=== PATIENT | female | born 1970 | race Caucasian/White ===

== ENCOUNTER → 2016-09-12 | Outpatient (CLI) | payer OTHER | LOC: WI 08:17 | PROVIDERS: ATTEND Obstetrics & Gynecology Gynecology | DX: Z12.31 Encounter for screening mammogram for malignant neoplasm of breast (principal) | CPT/HCPCS: 77067; G0202 ==

== ENCOUNTER 2017-08-21 11:08 | Emergency (ER) | payer OTHER ==
--- NOTE | 2017-08-21 11:25 | ER Document Report ---
ED Medical Screen (RME) - General Chief Complaint: Weakness Stated Complaint: WEAKNESS Time Seen by Provider: 08/21/17 11:20 Mode of Arrival: Ambulatory Information source: Patient Notes: 47 yo smoker, non htn, non dm, was at work this morning at 10:30 got bad taste in her mouth and smells of suedge, then go anterior retrosternal chest pain, lightheaded like she was going to pass, weak in right foot and right hand, vision turning sideways. Got up with her spouse and said she needed to the bathroom. Still has menses 12-27. Weakness is subsiding at this time. TRAVEL OUTSIDE OF THE [place] IN LAST 30 DAYS: No - Related Data Allergies/Adverse Reactions: No Known Allergies Allergy (Verified 08/03/13 03:17) Past Medical History - Past Medical History Cardiac Medical History: Denies: Hx Coronary Artery Disease, Hx Heart Attack, Hx Hypertension Pulmonary Medical History: Denies: Hx Asthma, Hx Bronchitis, Hx COPD, Hx Pneumonia Neurological Medical History: Denies: Hx Cerebrovascular Accident, Hx Seizures Musculoskeltal Medical History: Denies Hx Arthritis Past Surgical History: Reports: Hx Breast Surgery - augmentation - Immunizations Hx Diphtheria, Pertussis, Tetanus Vaccination: Yes Physical Exam - Vital signs Vitals: Temp Pulse Resp BP Pulse Ox 97.8 F 97 18 185/101 H 97 08/21/17 11:17 08/21/17 11:17 08/21/17 11:17 08/21/17 11:17 08/21/17 11:17 Course - Vital Signs Vital signs: Temp Pulse Resp BP Pulse Ox 97.8 F 97 18 185/101 H 97 08/21/17 11:17 08/21/17 11:17 08/21/17 11:17 08/21/17 11:17 08/21/17 11:17
--- NOTE | 2017-08-21 11:48 | RADIOLOGY REPORT (SQ) ---
EXAM DESCRIPTION: CT HEAD WITHOUT COMPLETED DATE/TIME: 08/21/2017 11:33 am REASON FOR STUDY: htn, right side weakness COMPARISON: None. TECHNIQUE: Axial images acquired through the brain without intravenous contrast. Images reviewed wi th bone, brain and subdural windows. Images stored on PACS. All CT scanners at this facility use dose modulation, iterative reconstruction, and/or weight based d osing when appropriate to reduce radiation dose to as low as reasonably achievable (ALARA). [facility]: Dose Right [facility]: CareDose [facility]: Dose Right [facility]: Teradose 4D [facility]: Smart Technologies RADIATION DOSE: CT Rad equipment meets quality standard of care and radiation dose reduction techniq ues were employed. CTDIvol: 64.6 mGy. DLP: 1163 mGy-cm. mGy. LIMITATIONS: None. FINDINGS: VENTRICLES: Normal size and contour. CEREBRUM: No masses. No hemorrhage. No midline shift. No evidence for acute infarction. Normal gra y/white matter differentiation. No areas of low density in the white matter. CEREBELLUM: No masses. No hemorrhage. No alteration of density. No evidence for acute infarction. EXTRAAXIAL SPACES: No fluid collections. No masses. ORBITS AND GLOBE: No intra- or extraconal masses. Normal contour of globe without masses. CALVARIUM: No fracture. PARANASAL SINUSES: No fluid or mucosal thickening. SOFT TISSUES: No mass or hematoma. OTHER: No other significant finding. IMPRESSION: NORMAL BRAIN CT WITHOUT CONTRAST. EVIDENCE OF ACUTE STROKE: NO. COMMENT: Pertinent positive or negative findings of the imaging study reported as a CRITICAL EXAM nimo RODRIGUEZ NP at11:36 on 08/21/2017. Category of Critical Exam: Stroke alert Quality ID # [id number]: Final reports with documentation of one or more dose reduction techniques (e.g., Au tomated exposure control, adjustment of the mA and/or kV according to patient size, use of iterative reconstruction technique) TECHNICAL DOCUMENTATION: JOB ID: [id number] [employer]- All Rights Reserved
--- NOTE | 2017-08-21 11:51 | RADIOLOGY REPORT (SQ) ---
EXAM DESCRIPTION: CHEST SINGLE VIEW COMPLETED DATE/TIME: 08/21/2017 11:36 am REASON FOR STUDY: htn, right side weakness COMPARISON: November 2009 EXAM PARAMETERS: NUMBER OF VIEWS: One view. TECHNIQUE: Single frontal radiographic view of the chest acquired. RADIATION DOSE: NA LIMITATIONS: None. FINDINGS: LUNGS AND PLEURA: No opacities, masses or pneumothorax. No pleural effusion. MEDIASTINUM AND HILAR STRUCTURES: No masses. Contour normal. HEART AND VASCULAR STRUCTURES: Heart normal in size. Normal vasculature. BONES: No acute findings. HARDWARE: None in the chest. OTHER: No other significant finding. IMPRESSION: NO ACUTE RADIOGRAPHIC FINDING IN THE CHEST. TECHNICAL DOCUMENTATION: JOB ID: [id number] [employer]- All Rights Reserved
[2017-08-21 12:13] LABS: INTERNATIONAL RATION (INR) 0.86; PROTHROMBIN TIME 12.4 SEC (11.4-15.4)
[2017-08-21 12:16] LABS: ABSOLUTE BASOPHILS # (AUTO) 0.1 10^3/uL (0.0-0.2); ABSOLUTE EOSINOPHILS # (AUTO) 0.2 10^3/uL (0.0-0.6); ABSOLUTE LYMPHOCYTES (AUTO) 2.2 10^3/uL (0.5-4.7); ABSOLUTE MONOCYTES (AUTO) 0.5 10^3/uL (0.1-1.4); ABSOLUTE NEUT (AUTO) 5.3 10^3/uL (1.7-8.2); BASOPHILS % (AUTO) 0.8 % (0-2); EOSINOPHILS % (AUTO) 2.3 % (0-6); HEMATOCRIT 38.3 % (36.0-47.0); HEMOGLOBIN 13.2 g/dL (12.0-15.5); LYMPHOCYTES % (AUTO) 27.1 % (13-45); MEAN CORPUSCULAR HGB CONC 34.5 g/dL (32.0-36.0); MEAN CORPUSCULAR VOLUME 93 fl (80-97); MONOCYTES % (AUTO) 6.2 % (3-13); PLATELET COUNT 252 10^3/uL (150-450); RED BLOOD COUNT 4.14 10^6/uL (3.72-5.28); RED CELL DISTRIBUTION WIDTH 12.5 % (11.5-14.0); SEGMENTED NEUTROPHILS % (AUTO) 63.6 % (42-78); TOTAL CELLS COUNTED % (AUTO) 100 %; WHITE BLOOD COUNT 8.3 10^3/uL (4.0-10.5)
[2017-08-21 12:33] LABS: ALANINE AMINOTRANSFERASE 51 U/L (9-52); ALBUMIN 5.1 g/dL (3.5-5.0); ALKALINE PHOSPHATASE 74 U/L (38-126); ANION GAP 13 (5-19); ASPARTATE AMINO TRANSFERASE 36 U/L (14-36); BILIRUBIN,DIRECT 0.3 mg/dL (0.0-0.4); BILIRUBIN,TOTAL 0.5 mg/dL (0.2-1.3); BLOOD UREA NITROGEN 12 mg/dL (7-20); CALCIUM 10.1 mg/dL (8.4-10.2); CARBON DIOXIDE 25 mmol/L (22-30); CHLORIDE 104 mmol/L (98-107); CREATINE KINASE 59 U/L (30-135); GLUCOSE 106 mg/dL (75-110); POTASSIUM 4.2 mmol/L (3.6-5.0); SODIUM 142.4 mmol/L (137-145); TOTAL PROTEIN 7.9 g/dL (6.3-8.2)
[2017-08-21 12:47] LABS: TROPONIN I < 0.012 ng/mL
--- NOTE | 2017-08-21 14:48 | ER Document Report ---
ED General - General Mode of Arrival: Ambulatory Information source: Patient TRAVEL OUTSIDE OF THE [place] IN LAST 30 DAYS: No <MOIRA GRACE - Last Filed: 08/21/17 15:10> <KALEB AVILA - Last Filed: 08/22/17 11:00> - General Chief Complaint: Weakness Stated Complaint: WEAKNESS Time Seen by Provider: 08/21/17 11:20 Notes: Patient is a 47 year old female with a history of a pituitary tumor presents to the emergency department complaining of multiple symptoms including right sided weakness, lightheadedness, chest pain and "weird smells and tastes" onset around 1030. Patient states she was at work when she stood up and became light headed and smelled something "foul", stating it smelt like someone "crop dusted " her. She also states she began to taste something foul. Patient states she felt confused and was moving slow. Patient denies any slurred speech. (MOIRA GRACE) - Related Data Allergies/Adverse Reactions: No Known Allergies Allergy (Verified 08/03/13 03:17) Past Medical History - General Information source: Patient - Social History Smoking Status: Current Every Day Smoker Chew tobacco use (# tins/day): Yes Frequency of alcohol use: Occasional Drug Abuse: None Family History: Reviewed & Not Pertinent Patient has suicidal ideation: No Patient has homicidal ideation: No Past Surgical History: Reports: Hx Breast Surgery - augmentation - Immunizations Hx Diphtheria, Pertussis, Tetanus Vaccination: Yes <MOIRA GRACE - Last Filed: 08/21/17 15:10> Review of Systems - Review of Systems Constitutional: No symptoms reported EENT: No symptoms reported Cardiovascular: See HPI, Chest pain, Lightheaded Respiratory: No symptoms reported Gastrointestinal: No symptoms reported Genitourinary: No symptoms reported Female Genitourinary: No symptoms reported Musculoskeletal: No symptoms reported Skin: No symptoms reported Hematologic/Lymphatic: No symptoms reported Neurological/Psychological: See HPI, Confusion, Weakness -: Yes All other systems reviewed and negative <MOIRA GRACE - Last Filed: 08/21/17 15:10> Physical Exam <MOIRA GRACE - Last Filed: 08/21/17 15:10> <KALEB AVILA - Last Filed: 08/22/17 11:00> - Vital signs Vitals: Temp Pulse Resp BP Pulse Ox 97.8 F 97 18 185/101 H 97 08/21/17 11:17 08/21/17 11:17 08/21/17 11:17 08/21/17 11:17 08/21/17 11:17 - Notes Notes: GENERAL: Alert, interacts well. No acute distress. HEAD: Normocephalic, atraumatic. EYES: Appear normal. Pupils equal, round, and reactive to light. ENT: Moist mucus membranes, tongue midline. NECK: Full range of motion. Supple. Trachea midline. LUNGS: Clear to auscultation bilaterally, no wheezes, rales, or rhonchi. No respiratory distress. HEART: Regular rate and rhythm. No murmurs, gallops, or rubs. ABDOMEN: Soft, non-tender. Non-distended. Normal bowel sounds. EXTREMITIES: Moves all 4 extremities spontaneously. Decreased sensitivity to the right hand compared to the left. NEUROLOGICAL: Alert and oriented x3. Normal speech. No focal neurological deficits. PSYCH: Normal affect, normal mood. SKIN: Warm, dry, normal turgor. No rashes or lesions noted. (MOIRA GRACE) Course - Laboratory Result Diagrams: 08/21/17 12:00 08/21/17 12:00 <MOIRA GRACE - Last Filed: 08/21/17 15:10> - Laboratory Result Diagrams: 08/21/17 12:00 08/21/17 12:00 <KALEB AVILA - Last Filed: 08/22/17 11:00> - Re-evaluation Re-evalutation: 08/21/17 17:53 Patient's MRI is age-appropriate MRI with no acute findings or suggestions of stroke. Patient's symptoms have now resolved upon reevaluation. Discussed with patient need for follow-up with her primary care doctor for neurology referral if the symptoms were to continue or re-present. Patient agrees with plan with return precautions provided (KALEB AVILA) - Vital Signs Vital signs: Temp Pulse Resp BP Pulse Ox 97.8 F 56 L 17 97/53 L 100 08/21/17 11:17 08/21/17 12:00 08/21/17 16:18 08/21/17 18:04 08/21/17 16:18 - Laboratory Laboratory results interpreted by me: 08/21/17 12:00 Albumin 5.1 H Discharge <MOIRA GRACE - Last Filed: 08/21/17 15:10> <KALEB AVILA - Last Filed: 08/22/17 11:00> - Discharge Clinical Impression: Radiculopathy Qualifiers: Spinal region: unspecified Qualified Code(s): M54.10 - Radiculopathy, site unspecified Condition: Good Disposition: HOME, SELF-CARE Instructions: Radiculopathy ([facility]) Additional Instructions: Please follow-up with primary care physician for discussion for neurology referral if symptoms were to continue. Referrals: GAMALIEL BROWN MD [Primary Care Provider] - Follow up as needed Scribe Documentation - Scribe Written by Scribe:: July Beckford, 08/21/2017 15:18 acting as scribe for :: Joni <MOIRA GRACE - Last Filed: 08/21/17 15:10>
--- NOTE | 2017-08-21 17:32 | RADIOLOGY REPORT (SQ) ---
EXAM DESCRIPTION: MRI HEAD WITHOUT COMPLETED DATE/TIME: 08/21/2017 5:14 pm REASON FOR STUDY: RUE and RLE numbness, intermittent bad smells COMPARISON: None. TECHNIQUE: Multiplanar imaging includes non-contrasted T1, T2, FLAIR, and diffusion with ADC map seq uences. Images stored on PACS. LIMITATIONS: None. FINDINGS: ANATOMY: No anomalies. Normal vascular flow voids. Pituitary fossa normal. CSF SPACES: Normal in size and contour. No hemorrhage. CEREBRUM: Sulci and gyri normal in size and contour. Age-appropriate white matter signal on FLAIR im aging. No evidence of hemorrhage, mass, or extraaxial fluid collection. POSTERIOR FOSSA: No signal alteration. No hemorrhage. No edema, masses or mass effect. Internal allan tory canals, cerebello-pontine angles, mastoids normal. DIFFUSION IMAGING: Negative for acute or sub-acute infarction. ORBITS: No masses. Globes normal. PARANASAL SINUSES: No fluid levels. Mucosa normal. OTHER: No other significant finding. IMPRESSION: Negative for acute or sub-acute infarction. Age-appropriate exam. EVIDENCE OF ACUTE STROKE: NO. TECHNICAL DOCUMENTATION: JOB ID: [id number] 2010 [employer]- All Rights Reserved
[2017-08-21 18:27] VITALS: BP 97/53
--- NOTE | 2017-08-22 12:04 | EKG REPORT ---
SEVERITY:- BORDERLINE ECG - SINUS ARRHYTHMIA, RATE 52-75 BORDERLINE R WAVE PROGRESSION, ANTERIOR LEADS : Confirmed by: Shonda Calloway 22-Aug-2017 12:04:34
== END 2017-08-21 18:29 | disposition home or self-care (01) ==
LOC: ER 11:08
DX: M54.10 Radiculopathy, site unspecified (principal); R53.1 Weakness; R41.82 Altered mental status, unspecified; F17.200 Nicotine dependence, unspecified, uncomplicated
CPT/HCPCS: 36415; 70450; 70551; 71045; 80053; 82550; 82553; 84484; 85025; 85610; 85730; 93005; 93010; 99285

== ENCOUNTER → 2017-08-29 | Outpatient (CLI) | payer OTHER ==
--- NOTE | 2017-08-29 15:08 | WOMENS IMAGING REPORT ---
EXAM DESCRIPTION: U/S THYROID/ST TIS HEAD NECK COMPLETED DATE/TIME: 08/29/2017 1:56 pm REASON FOR STUDY: NONTOXIC MULTINODULAR GOITER; E04.2 E04.2 NONTOXIC MULTINODULAR GOITER COMPARISON: Thyroid ultrasound 11/23/2011, 10/19/2014 TECHNIQUE: Dynamic and static juarez-scale images acquired of the thyroid gland. Selected additional c olor/power Doppler images recorded. All images stored to PACS. LIMITATIONS: None. FINDINGS: RIGHT LOBE: Stable, 2.9 x 1.1 x 1 cm in size. Well-circumscribed hypoechoic nodule with a coustic through transmission, 1.1 x 0.6 cm in size, similar compared to exams in 2011 and 2014. LEFT LOBE: Stable, 2.9 x 0.8 x 0.8 cm in size. Homogeneous echotexture. No cystic or solid masses. ISTHMUS: 2 mm in thickness Homogeneous echotexture. No cystic or solid masses. OTHER: No other significant finding. IMPRESSION: Diffusely small thyroid gland Stable 1.1 x 0.6 cm nodule in the posterior right lobe thyroid as compared to 2011 and 2014. TECHNICAL DOCUMENTATION: JOB ID: [id number] [employer]- All Rights Reserved
== END ==
LOC: WI 12:54
PROVIDERS: ATTEND Internal Medicine Endocrinology, Diabetes & Metabolism
DX: E04.2 Nontoxic multinodular goiter (principal)
CPT/HCPCS: 76536

== ENCOUNTER → 2018-02-12 | Outpatient (CLI) | payer OTHER ==
--- NOTE | 2018-02-12 15:49 | WOMENS IMAGING REPORT ---
EXAM DESCRIPTION: BILAT SCREENING MAMMO W/CAD COMPLETED DATE/TIME: 02/12/2018 2:28 pm REASON FOR STUDY: SCREENING MAMMO Z12.31 ENCNTR SCREEN MAMMOGRAM FOR MALIGNANT NEOPLASM OF KINJAL COMPARISON: Multiple since 2009 TECHNIQUE: Standard craniocaudal and mediolateral oblique views of each breast recorded using digita l acquisition. Additional "push-back" craniocaudal and mediolateral oblique images acquired. LIMITATIONS: None. FINDINGS: IMPLANTS: Bilateral subpectoral implants. Findings present which are benign by mammographic criteria. No suspicious masses, calcifications or architectural distortion. Read with the assistance of CAD. .[facility] - R2 Cenova Version 1.3 .[facility] Imaging - R2 Cenova Version 1.3 .[facility] - R2 Cenova Version 2.4 .[facility] - R2 Cenova Version 2.4 .[facility] - R2 [employer] Technician Version 9.2 Benign mammographic findings may include one or more of the following: Smooth masses, popcorn/rim/co arse calcifications, asymmetries, post-procedure changes, and lesions with long-standing stability. IMPRESSION: BENIGN MAMMOGRAPHIC FINDINGS. BIRADS 2 BREAST DENSITY: c. The breasts are heterogeneously dense, which may obscure small masses. BIRAD: 2 BENIGN FINDING(S) RECOMMENDATION: ROUTINE SCREENING Please consider bilateral screening tomosynthesis in January 2019 given heterogeneously dense tissue COMMENT: The patient has been notified of the results by letter per MQSA requirements. Additional no tification policies are in place for contacting patient with suspicious or incomplete findings. Quality ID #[id number]: The [employer] College [employer] recommends an annual screening mammogram for women aged 40 years or over. This facility utilizes a reminder system to ensure that all patients receive reminder letters, and/or direct phone calls for appointments. This includes reminders for routine scr eening mammograms, diagnostic mammograms, or other Breast Imaging Interventions when appropriate. Th is patient will be placed in the appropriate reminder system. The [employer] (ACR) has developed recommendations for screening MRI of the breast s in certain patient populations, to be used in conjunction with mammography. Breast MRI surveillanc e may be appropriate for women with more than 20% lifetime risk of developing breast cancer as deter mined by genetic testing, significant family history of the disease, or history of mantle radiation f or Hodgkins Disease. ACR Practice Guidelines 2008. TECHNICAL DOCUMENTATION: FINDING NUMBER: (1) ASSESSMENT: (1) JOB ID: [id number] [employer]- All Rights Reserved Reading location - IP/workstation name: [email or web address]
== END ==
LOC: WI 13:38
PROVIDERS: ATTEND Obstetrics & Gynecology Gynecology
DX: Z12.31 Encounter for screening mammogram for malignant neoplasm of breast (principal); Z98.82 Breast implant status
CPT/HCPCS: 77067

== ENCOUNTER 2018-12-09 07:06 | Emergency (ER) | payer OTHER ==
[2018-12-09] MEDS ORDERED: ASPIRIN 81 MG TABLET, CHEWABLE PO ONE (08:15)
--- NOTE | 2018-12-09 08:20 | ER Document Report ---
ED General - General Chief Complaint: Back Pain Stated Complaint: BACK PAIN Time Seen by Provider: 12/09/18 07:55 Primary Care Provider: JONNA GERBER MD [Primary Care Provider] - Follow up in 3-5 days Mode of Arrival: Ambulatory Information source: Patient Notes: Patient presents emergency department with complaints of right-sided back pain that radiates into her chest with shortness of breath. She reports symptoms started at 6:30 AM when she woke up. She reports it feels like a dull knife. She reports increased pain with movement and deep breath. She denies fever nausea vomiting diarrhea. Reports last bowel movement was this morning it was normal. Denies pain with void. Patient reports history of abnormal stress test years ago but is not taking medications for CAD. 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 Denies lifting the patient or something heavy. TRAVEL OUTSIDE OF THE [place] IN LAST 30 DAYS: No - HPI Onset: This morning Onset/Duration: Sudden, Persistent Quality of pain: Dull, Stabbing Severity: Severe Pain Level: 4 Associated symptoms: None Exacerbated by: Movement, Deep breathing Relieved by: Denies Similar symptoms previously: No Recently seen / treated by doctor: No - Related Data Allergies/Adverse Reactions: No Known Allergies Allergy (Verified 08/03/13 03:17) Past Medical History - General Information source: Patient Last Menstrual Period: 11/14 - Social History Smoking Status: Current Every Day Smoker Cigarette use (# per day): Yes Frequency of alcohol use: Social Drug Abuse: None Occupation: [place] Lives with: Family Family History: Reviewed & Not Pertinent Patient has suicidal ideation: No Patient has homicidal ideation: No - Past Medical History Cardiac Medical History: Denies: Hx Coronary Artery Disease, Hx Heart Attack, Hx Hypertension Pulmonary Medical History: Denies: Hx Asthma, Hx Bronchitis, Hx COPD, Hx Pneumonia Neurological Medical History: Denies: Hx Cerebrovascular Accident, Hx Seizures Endocrine Medical History: Reports: Hx Hypothyroidism Renal/ Medical History: Denies: Hx Peritoneal Dialysis Musculoskeletal Medical History: Denies Hx Arthritis Past Surgical History: Reports: Hx Breast Surgery - augmentation - Immunizations Hx Diphtheria, Pertussis, Tetanus Vaccination: Yes Review of Systems - Review of Systems Notes: Review HPI for review of systems., All other systems negative Physical Exam - Vital signs Vitals: Temp Pulse Resp BP Pulse Ox 97.6 F 63 18 138/69 H 100 05/14/19 07:11 12/09/18 07:11 12/09/18 07:11 12/09/18 07:11 12/09/18 07:11 - Notes Notes: PHYSICAL EXAMINATION: GENERAL: nontoxic looking and in no acute distress HEAD: Atraumatic, normocephalic. EYES: Pupils equal round, extraocular movements intact, sclera anicteric, conjunctiva are normal. ENT: nares patent, Moist mucous membranes. NECK: Normal range of motion, supple without lymphadenopathy LUNGS: CTAB and equal. No wheezes rales or rhonchi. HEART: Regular rate and rhythm without murmurs ABDOMEN: Soft, no tenderness. No guarding, no rebound BACK: Reports deep pain, no pain with palpation, no vertebral tenderness EXTREMITIES: Normal range of motion, no pitting edema. NEUROLOGICAL: Cranial nerves grossly intact. Normal sensory/motor exams. PSYCH: Normal mood, normal affect. SKIN: Warm, Dry, normal turgor, no rashes noted Course - Re-evaluation Re-evalutation: 12/09/18 10:30 Discussed all labs EKG and chest x-ray with patient she denies chest pain reports the pain radiates from her right upper back to her right upper quad. Patient reports is mostly in her back now. Reports pain only when she moves or takes a deep breath chest x-ray is negative, labs unremarkable, UA with small blood trace leukocytes patient denies urinary symptoms. Denies history of kidney stones. Pain is more upper right-sided back. Will give patient muscle relaxer to see if that eases her pain. Patient does report Motrin helped ease the pain. 12/09/18 11:09 Reports she is feeling better after the muscle relaxer. Patient does have pain to her right upper back when she lifts her hands overhead. No ecchymosis. RR even/unlabored Patient was instructed on all results encouraged to follow-up with primary care provider and cardiology Presentation of chest pain in an otherwise well-appearing patient. Low clinical suspicion for ACS given the clinical history, exam, EKG without ST elevation or depressions, and negative initial troponin. Heart score less than or equal to 3. PE also seems unlikely given the clinical history, absence of tachycardia or dyspnea. Patient's PERC criteria is negative. Chest x-ray without evidence of pneumothorax or pneumonia. No widened mediastinum. Inferior dissection also seems unlikely given history, symmetric pulses, chest x-ray and vitals. Given the reassuring evaluation, will plan for discharge home at this time with return precautions and follow-up recommendations. Patient has been instructed to return if symptoms worsen or change in any way. HEART score-2 History0 ECG0 Age1 Risk Factors1 Troponin0 Total2 C The patient demonstrates decision-making capacity and has verbalized an understanding of these risks to me. Based on this, the patient was instructed to follow-up up as an outpatient. Usual chest pain return precautions reviewed. Patient verbalized understanding. Dictation of this chart was performed using voice recognition software; therefore, there may be some unintended grammatical errors. - Vital Signs Vital signs: Temp Pulse Resp BP Pulse Ox 97.6 F 63 18 138/69 H 100 12/09/18 07:11 12/09/18 07:11 12/09/18 07:11 12/09/18 07:11 12/09/18 07:11 - Laboratory Result Diagrams: 12/09/18 09:26 12/09/18 09:26 Laboratory results interpreted by me: 12/09/18 12/09/18 09:26 09:26 AST 37 H Urine Blood SMALL H Ur Leukocyte Esterase TRACE H - Diagnostic Test Radiology reviewed: Image reviewed, Reports reviewed - Chest x-ray negative - EKG Interpretation by Me EKG shows normal: Sinus rhythm Rate: Normal, Bradycardia Rhythm: NSR Additional EKG results interpreted by me: 12/09/18 10:[address] elevation no T wave inversion Discharge - Discharge Clinical Impression: Upper back pain on right side Condition: Stable Disposition: HOME, SELF-CARE Instructions: Use of [id number] Ibuprofen ([facility]), Upper Back Strain ([facility]) Additional Instructions: *You have been evaluated for right upper back pain, abdominal pain *Take ibuprofen as indicated for pain *Take muscle relaxer as prescribed *Follow up with a primary care provider within 5 days recheck *Return to ED for worsening condition, changes, needs *Return to ED if not better in 24 hours Monitor your blood pressure. Your blood pressure was elevated today. This may be because you were anxious, in pain or because you need medication. It is important to follow up with your primary care provider for full evaluation. Prescriptions: Cyclobenzaprine HCl [Flexeril 5 mg Tablet] 5 mg PO TID #15 tablet Forms: Elevated Blood Pressure, Return to Work Referrals: JONNA GERBER MD [Primary Care Provider] - Follow up in 3-5 days
[2018-12-09] MEDS ORDERED: IBUPROFEN 800 MG TABLET PO ONE (08:40)
--- NOTE | 2018-12-09 08:40 | RADIOLOGY REPORT (SQ) ---
EXAM DESCRIPTION: CHEST 2 VIEWS COMPLETED DATE/TIME: 12/09/2018 8:27 am REASON FOR STUDY: back to chest pain COMPARISON: AP chest 08/21/2017 EXAM PARAMETERS: NUMBER OF VIEWS: two views TECHNIQUE: Digital Frontal and Lateral radiographic views of the chest acquired. RADIATION DOSE: NA LIMITATIONS: none FINDINGS: LUNGS AND PLEURA: No opacities, masses or pneumothorax. No pleural effusion. MEDIASTINUM AND HILAR STRUCTURES: No masses or contour abnormalities. HEART AND VASCULAR STRUCTURES: Heart normal size. No evidence for failure. BONES: No acute findings. HARDWARE: Clips right upper quadrant post cholecystectomy OTHER: No other significant finding. IMPRESSION: NO ACUTE RADIOGRAPHIC FINDING IN THE CHEST. TECHNICAL DOCUMENTATION: JOB ID: [id number] [employer]- All Rights Reserved Reading location - IP/workstation name: [email or web address]
[2018-12-09 09:49] LABS: ABSOLUTE BASOPHILS # (AUTO) 0.1 10^3/uL (0.0-0.2); ABSOLUTE EOSINOPHILS # (AUTO) 0.1 10^3/uL (0.0-0.6); ABSOLUTE LYMPHOCYTES (AUTO) 2.1 10^3/uL (0.5-4.7); ABSOLUTE MONOCYTES (AUTO) 0.4 10^3/uL (0.1-1.4); ABSOLUTE NEUT (AUTO) 4.7 10^3/uL (1.7-8.2); BASOPHILS % (AUTO) 1.1 % (0-2); EOSINOPHILS % (AUTO) 1.7 % (0-6); HEMATOCRIT 39.3 % (36.0-47.0); HEMOGLOBIN 13.4 g/dL (12.0-15.5); LYMPHOCYTES % (AUTO) 27.9 % (13-45); MEAN CORPUSCULAR HEMOGLOBIN 32.3 pg (27.0-33.4); MEAN CORPUSCULAR HGB CONC 34.2 g/dL (32.0-36.0); MEAN CORPUSCULAR VOLUME 94 fl (80-97); PLATELET COUNT 291 10^3/uL (150-450); RED BLOOD COUNT 4.17 10^6/uL (3.72-5.28); RED CELL DISTRIBUTION WIDTH 13.2 % (11.5-14.0); SEGMENTED NEUTROPHILS % (AUTO) 63.3 % (42-78); TOTAL CELLS COUNTED % (AUTO) 100 %; WHITE BLOOD COUNT 7.4 10^3/uL (4.0-10.5)
[2018-12-09 09:51] LABS: APPEARANCE,URINE SLIGHTLY-CLOUDY; BILIRUBIN,URINE NEGATIVE (NEGATIVE); COLOR,URINE STRAW; GLUCOSE, URINE NEGATIVE (NEGATIVE); KETONES,URINE NEGATIVE (NEGATIVE); LEUKOCYTE ESTERASE,URINE TRACE (NEGATIVE); NITRITE,URINE NEGATIVE (NEGATIVE); PROTEIN,URINE NEGATIVE (NEGATIVE); URINE SPECIFIC GRAVITY 1.008; UROBILINOGEN,URINE NEGATIVE mg/dL (<2.0)
[2018-12-09 10:16] LABS: ALANINE AMINOTRANSFERASE 43 U/L (9-52); ALBUMIN 4.7 g/dL (3.5-5.0); ALKALINE PHOSPHATASE 75 U/L (38-126); AMYLASE 55 U/L (30-110); ANION GAP 11 (5-19); ASPARTATE AMINO TRANSFERASE 37 U/L (14-36); BILIRUBIN,DIRECT 0.2 mg/dL (0.0-0.4); BILIRUBIN,TOTAL 0.5 mg/dL (0.2-1.3); BLOOD UREA NITROGEN 13 mg/dL (7-20); CALCIUM 10.2 mg/dL (8.4-10.2); CARBON DIOXIDE 26 mmol/L (22-30); CHLORIDE 105 mmol/L (98-107); CREATINE KINASE 59 U/L (30-135); GLUCOSE 101 mg/dL (75-110); LIPASE 81.6 U/L (23-300); POTASSIUM 4.5 mmol/L (3.6-5.0); SODIUM 141.9 mmol/L (137-145); TOTAL PROTEIN 7.8 g/dL (6.3-8.2)
[2018-12-09] MEDS ORDERED: CYCLOBENZAPRINE HCL 10 MG TABLET PO ONE (10:30)
[2018-12-09 12:06] VITALS: BP 102/58
--- NOTE | 2018-12-09 16:43 | EKG REPORT ---
SEVERITY:- ABNORMAL ECG - SINUS BRADYCARDIA ABNRM R PROG, CONSIDER ASMI OR LEAD PLACEMENT : Confirmed by: Nicolás Perla MD 09-Dec-2018 16:43:35
== END 2018-12-09 12:12 | disposition home or self-care (01) ==
LOC: ER 07:06
DX: M54.6 Pain in thoracic spine (principal); R06.02 Shortness of breath; R10.11 Right upper quadrant pain; F17.210 Nicotine dependence, cigarettes, uncomplicated
CPT/HCPCS: 36415; 71046; 80053; 81001; 82150; 82550; 83690; 84484; 84703; 85025; 93005; 93010; 99283